=== PATIENT | male | born 1985 | race Caucasian/White ===

== ENCOUNTER → 2019-10-09 | Outpatient (CLI) | payer OTHER ==
--- NOTE | 2019-10-09 11:39 | Diagnostic Imaging Report ---
INDICATION: Status post fall down stairs, pain. TECHNIQUE: AP and lateral sacrococcyx views at 10:26 AM. CORRELATION STUDY: None. FINDINGS: There is no suggestion for a displaced sacrococcygeal fracture. The sacroiliac joints appear unremarkable. The visualized portions of the hip and pubic symphysis are unremarkable. IMPRESSION: Negative for acute displaced sacrococcygeal fracture. Dictated by: Dictated on workstation # [id number]
--- NOTE | 2019-10-09 11:40 | Diagnostic Imaging Report ---
INDICATION: Pain after fall down stairs, injury. TECHNIQUE: AP, lateral, and spot imaging of the lumbar spine. CORRELATION STUDY: None. FINDINGS: There are some limitations on this study, particularly the lateral projection. Given this, there is a mild leftward curvature of the mid lumbar spine, apex L3 level. Lumbar vertebral body heights and intervertebral disc spaces are maintained and unremarkable. IMPRESSION: Very mild leftward curvature of mid lumbar spine. No suggestion for acute bony abnormality. Dictated by: Dictated on workstation # [id number]
== END ==
LOC: RAD FS 10:15
PROVIDERS: ATTEND Nurse Practitioner
DX: S39.92XA Unspecified injury of lower back, initial encounter (principal); M43.8X6 Other specified deforming dorsopathies, lumbar region
CPT/HCPCS: 72100; 72220